=== PATIENT | male | born 1935 | race Caucasian/White ===

== ENCOUNTER 2020-06-20 07:03 | Day surgery (SDC) | payer MEDICARE ==
[~2020-06-20] VITALS: Ht 188 cm; Wt 94.7 kg
[2020-06-20] VITALS (12 sets, daily range): BP systolic 118–137; BP diastolic 57–70
[2020-06-20 08:19] LABS: BASOPHILS # (AUTO) 0.1 X10'3 (0-0.2); BASOPHILS % (AUTO) 1.5 % (0-1); EOSINOPHILS # (AUTO) 0.2 X10'3 (0-0.9); EOSINOPHILS % (AUTO) 4.4 % (0-6); HEMATOCRIT 34.4 % (42.0-52.0); HEMOGLOBIN 11.7 g/dl (14.0-17.9); LYMPHOCYTES # (AUTO) 1.8 X10'3 (1.1-4.8); LYMPHOCYTES % (AUTO) 34.9 % (21-51); MEAN CORPUSCULAR HEMOGLOBIN 33.6 PG (27.0-31.0); MEAN CORPUSCULAR VOLUME 98.7 FL (78-98); MEAN PLATELET VOLUME 8.1 FL (7.4-10.4); MONOCYTES # (AUTO) 0.4 X10'3 (0-0.9); MONOCYTES % (AUTO) 7.7 % (2-12); NEUTROPHILS # (AUTO) 2.7 X10'3 (1.8-7.7); NEUTROPHILS % (AUTO) 51.5 % (42-75); PLATELET COUNT 130 X10'3 (140-440); RED BLOOD COUNT 3.49 X10'6 (4.70-6.10); RED CELL DISTRIBUTION WIDTH 14.5 % (11.5-14.5); WHITE BLOOD COUNT 5.2 X10'3 (4.5-11.0)
[2020-06-20] MEDS: atropine 0.1mg/ml 10ml syringe IV ONE (08:21)
[2020-06-20] MEDS: LORazepam 0.5 MG tablet PO ONE (08:21)
[2020-06-20] MEDS: diphenhydrAMINE 25mg capsule PO ONE (08:21)
[2020-06-20] MEDS: MIDAZolam 1mg/ml 10ml vial IV ONE (08:21)
[2020-06-20] MEDS: morphine 10mg/ml inj. IV ONE (08:21)
[2020-06-20] MEDS: amiodarone 150mg/dext, iso-os 100 ML IV ONE (08:21)
[2020-06-20] MEDS: normal saline 1000ml 1,000 ML IV SCH (08:22)
[2020-06-20 08:24] LABS: BLOOD UREA NITROGEN 15 MG/DL (7-18); BUN/CREATININE RATIO 15.6 (5.4-32.0); CHLORIDE 106 MMOL/L (99-107); CREATININE 0.96 MG/DL (0.60-1.10); GLUCOSE 107 MG/DL (70-104); POTASSIUM 4.1 MMOL/L (3.5-5.1); SODIUM 142 MMOL/L (135-145); eGFR 74 ML/MIN
[2020-06-20] MEDS ORDERED: POTA10TA10 PO (08:27)
[2020-06-20] MEDS ORDERED: FURO20TA4 PO (08:27)
[2020-06-20] MEDS ORDERED: CARV3.122 PO (08:27)
[2020-06-20] MEDS ORDERED: APIX5TAB3 PO (08:27)
[2020-06-20] MEDS ORDERED: SACU1TAB PO (08:27)
[2020-06-20 08:30] LABS: ALBUMIN 3.4 G/DL (3.4-5.0); ANION GAP 8 (8-16); CALCIUM 9.7 MG/DL (8.5-10.1); TOTAL CARBON DIOXIDE 28.5 MMOL/L (24-32)
[2020-06-20] MEDS ORDERED: MULT-1085 PO (08:32)
[2020-06-20] MEDS ORDERED: FLUT16SP2 BOTHNARES (08:32)
[2020-06-20] MEDS ORDERED: [UNRECOGNIZED DRUG - CODE] TOP (08:32)
[2020-06-20] MEDS ORDERED: HAWT500C PO (08:32)
[2020-06-20] MEDS ORDERED: IPRA5POW (08:32)
[2020-06-20] MEDS ORDERED: [UNRECOGNIZED DRUG - CODE] (08:32)
[2020-06-20] MEDS ORDERED: LORA5TAB9 PO (08:32)
[2020-06-20] MEDS ORDERED: UBID30CA11 PO (08:32)
[2020-06-20] MEDS ORDERED: AMIO200T61 PO (08:35)
== END 2020-06-20 10:00 | disposition home or self-care (01) ==
LOC: SSTAY O 07:03
PROVIDERS: ATTEND Internal Medicine Cardiovascular Disease
DX: I48.19 Other persistent atrial fibrillation (principal); I11.0 Hypertensive heart disease with heart failure; I50.20 Unspecified systolic (congestive) heart failure; G47.33 Obstructive sleep apnea (adult) (pediatric); I34.0 Nonrheumatic mitral (valve) insufficiency; E78.5 Hyperlipidemia, unspecified; I42.0 Dilated cardiomyopathy; Z79.899 Other long term (current) drug therapy; Z95.5 Presence of coronary angioplasty implant and graft; Z96.653 Presence of artificial knee joint, bilateral; Z85.528 Personal history of other malignant neoplasm of kidney; Z98.49 Cataract extraction status, unspecified eye; Z87.891 Personal history of nicotine dependence; Z88.1 Allergy status to other antibiotic agents; Z79.01 Long term (current) use of anticoagulants
CPT/HCPCS: 36415; 80048; 85025; 85610; 92960; 93005; 94760; 94799; J0461; J2250; J2270; J7030; Q0163

== ENCOUNTER 2020-10-12 12:49 | Outpatient (CLI) | payer MEDICARE ==
[~2020-10-12 12:49] MED LIST: AMIO200T61 PO; APIX5TAB3 PO; CARV3.122 PO; FLUT16SP2 BOTHNARES; FURO20TA4 PO; HAWT500C PO; IPRA5POW; LORA5TAB9 PO; MULT-1085 PO; POTA10TA10 PO; SACU1TAB PO; UBID30CA11 PO; [UNRECOGNIZED DRUG - CODE]; [UNRECOGNIZED DRUG - CODE] TOP; barium sulfate 450ml oral suspension ONE
== END 2020-10-12 23:59 | disposition home or self-care (01) ==
LOC: RAD 12:49
PROVIDERS: ATTEND Otolaryngology
DX: R13.12 Dysphagia, oropharyngeal phase (principal); R47.1 Dysarthria and anarthria; R49.0 Dysphonia
CPT/HCPCS: 74230

== ENCOUNTER 2021-01-25 10:24 | Outpatient (CLI) | payer MEDICARE ==
[~2021-01-25 10:24] MED LIST changes: -barium sulfate 450ml oral suspension ONE
[2021-01-25 10:54] LABS: TOTAL HEMOGLOBIN 15.4 G/dl (14.0-18.0)
== END 2021-01-25 23:59 | disposition home or self-care (01) ==
LOC: RT 10:24
PROVIDERS: ATTEND Internal Medicine Cardiovascular Disease
DX: R06.02 Shortness of breath (principal); Z79.899 Other long term (current) drug therapy
CPT/HCPCS: 71046; 85018; 94010; 94727; 94729

== ENCOUNTER 2021-07-19 14:58 | Outpatient (CLI) | payer MEDICARE ==
[~2021-07-19 14:58] MED LIST changes: +POTA-188 PO; -POTA10TA10 PO
== END 2021-07-19 23:59 | disposition home or self-care (01) ==
LOC: RAD 14:58
PROVIDERS: ATTEND Otolaryngology
DX: R13.12 Dysphagia, oropharyngeal phase (principal); R49.0 Dysphonia; R47.1 Dysarthria and anarthria; Z79.899 Other long term (current) drug therapy
CPT/HCPCS: 74230

== ENCOUNTER 2022-01-19 09:59 | Outpatient (CLI) | payer MEDICARE | END 2022-01-19 23:59 | disposition home or self-care (01) | LOC: RT 09:59 | PROVIDERS: ATTEND Internal Medicine Cardiovascular Disease | DX: J44.9 Chronic obstructive pulmonary disease, unspecified (principal); R94.2 Abnormal results of pulmonary function studies; J98.4 Other disorders of lung; Z79.899 Other long term (current) drug therapy; Z87.891 Personal history of nicotine dependence | CPT/HCPCS: 71046; 85018; 94010; 94727; 94729 ==

== ENCOUNTER 2022-03-07 07:58 | Day surgery (SDC) | payer MEDICARE ==
[2022-03-06 10:05] LABS: ANION GAP 7 (8-16); BLOOD UREA NITROGEN 15 MG/DL (7-18); BUN/CREATININE RATIO 13.9 (5.4-32.0); CALCIUM 9.9 MG/DL (8.5-10.1); CHLORIDE 102 MMOL/L (99-107); CREATININE 1.08 MG/DL (0.60-1.10); GLUCOSE 88 MG/DL (70-104); POTASSIUM 4.2 MMOL/L (3.5-5.1); SODIUM 138 MMOL/L (135-145); eGFR 64 ML/MIN
[2022-03-06 10:20] LABS: BASOPHILS # (AUTO) 0.1 X10'3 (0-0.2); BASOPHILS % (AUTO) 1.8 % (0-1); EOSINOPHILS # (AUTO) 0.1 X10'3 (0-0.9); EOSINOPHILS % (AUTO) 1.6 % (0-6); HEMATOCRIT 38.8 % (42.0-52.0); LYMPHOCYTES % (AUTO) 35.6 % (21-51); MEAN CORPUSCULAR HEMOGLOBIN 34.1 PG (27.0-31.0); MEAN CORPUSCULAR HGB CONC 33.4 g/dL (33.0-36.5); MEAN CORPUSCULAR VOLUME 102.1 FL (78-98); MEAN PLATELET VOLUME 8.9 FL (7.4-10.4); MONOCYTES # (AUTO) 0.4 X10'3 (0-0.9); MONOCYTES % (AUTO) 6.7 % (2-12); NEUTROPHILS # (AUTO) 3.1 X10'3 (1.8-7.7); NEUTROPHILS % (AUTO) 54.3 % (42-75); PLATELET COUNT 151 X10'3 (140-440); RED BLOOD COUNT 3.81 X10'6 (4.70-6.10); RED CELL DISTRIBUTION WIDTH 16.5 % (11.5-14.5); WHITE BLOOD COUNT 5.7 X10'3 (4.5-11.0)
[2022-03-07] VITALS (10 sets, daily range): BP systolic 119–151; BP diastolic 57–74
[~2022-03-07] VITALS: Ht 188 cm; Wt 94.4 kg
[2022-03-07] MEDS ORDERED: atropine 0.1mg/ml 10ml syringe IV ONE (08:15)
[2022-03-07] MEDS ORDERED: MIDAZolam 1mg/ml 10ml vial IV ONE (08:15)
[2022-03-07] MEDS ORDERED: diphenhydrAMINE 25mg capsule PO ONE (08:15)
[2022-03-07] MEDS ORDERED: amiodarone 150mg/dext, iso-os 100 ML IV ONE (08:15)
[2022-03-07] MEDS ORDERED: LORazepam 0.5 MG tablet PO ONE (08:15)
[2022-03-07] MEDS ORDERED: morphine 10mg/ml inj. IV ONE (08:15)
[2022-03-07] MEDS ORDERED: FERR324T2 PO (08:55)
[2022-03-07] MEDS ORDERED: EMPA25TA PO (08:55)
[2022-03-07] MEDS ORDERED: CARV6.253 PO (08:55)
[2022-03-07] MEDS ORDERED: OMEG1CAP46 PO (09:01)
[2022-03-07] MEDS ORDERED: UBID10CA4 PO (09:01)
[2022-03-07] MEDS ORDERED: FLAX10007 PO (09:01)
[2022-03-07] MEDS ORDERED: NIAC500T44 PO (09:03)
[2022-03-07] MEDS ORDERED: [UNRECOGNIZED DRUG - REMARK] (09:03)
[2022-03-07] MEDS ORDERED: LORA5TAB9 PO (09:08)
[2022-03-07] MEDS ORDERED: MAGN400C PO (09:08)
[2022-03-07] MEDS ORDERED: HYALURONIC ACID PO (09:12)
[2022-03-07] MEDS ORDERED: SACU1TAB (09:12)
[2022-03-07] MEDS ORDERED: AMIO100T4 PO (09:12)
[2022-03-07] MEDS ORDERED: GARL1000 PO (09:14)
[2022-03-07] MEDS ORDERED: GING250C (09:14)
--- NOTE | 2022-03-07 11:12 | NUR ---
Called pt's per pt request. She agreed to discharge time. Pt aware.
== END 2022-03-07 12:20 | disposition home or self-care (01) ==
LOC: SSTAY O 07:58
PROVIDERS: ATTEND Internal Medicine Cardiovascular Disease
DX: I48.19 Other persistent atrial fibrillation (principal); I10 Essential (primary) hypertension; Z95.5 Presence of coronary angioplasty implant and graft; E78.5 Hyperlipidemia, unspecified; I48.0 Paroxysmal atrial fibrillation; Z79.899 Other long term (current) drug therapy; Z98.890 Other specified postprocedural states
CPT/HCPCS: 36415; 80048; 85025; 85610; 92960; 93005; J2250; J2274; J7030; A4620

== ENCOUNTER 2022-10-31 11:06 | Outpatient (CLI) | payer MEDICARE ==
[~2022-10-31 11:06] MED LIST changes: +AMIO100T4 PO; -AMIO200T61 PO; -CARV3.122 PO; +CARV6.253 PO; +EMPA25TA PO; +FERR324T2 PO; +FLAX10007 PO; -FURO20TA4 PO; +GARL1000 PO; +GING250C; -HAWT500C PO; +HYALURONIC ACID PO; +MAGN400C PO; -MULT-1085 PO; +NIAC500T44 PO; +OMEG1CAP46 PO; -POTA-188 PO; +SACU1TAB; +UBID10CA4 PO; -UBID30CA11 PO; -[UNRECOGNIZED DRUG - CODE]; -[UNRECOGNIZED DRUG - CODE] TOP; +[UNRECOGNIZED DRUG - REMARK]
== END 2022-10-31 23:59 | disposition home or self-care (01) ==
LOC: CARD DIAG 11:06
PROVIDERS: ATTEND Internal Medicine Cardiovascular Disease
DX: I08.3 Combined rheumatic disorders of mitral, aortic and tricuspid valves (principal); I50.22 Chronic systolic (congestive) heart failure
CPT/HCPCS: 93306